=== PATIENT | male | born 1990 | race Caucasian/White ===

== ENCOUNTER 2017-12-01 11:21 | Emergency (ER) | payer OTHER ==
[~2017-12-01] VITALS: Ht 182.9 cm; Wt 82.0 kg
[2017-12-01 11:23] VITALS: BP 103/57
== END 2017-12-01 12:03 | disposition left against medical advice (07) ==
LOC: ER 11:38 → CANBEDREQ 14:56
DX: S00.512A Abrasion of oral cavity, initial encounter (principal); R56.9 Unspecified convulsions; R00.0 Tachycardia, unspecified; F12.10 Cannabis abuse, uncomplicated; Z86.011 Personal history of benign neoplasm of the brain; X58.XXXA Exposure to other specified factors, initial encounter; Y93.89 Activity, other specified; Y92.89 Other specified places as the place of occurrence of the external cause; Y99.8 Other external cause status
CPT/HCPCS: 99283